=== PATIENT | female | born 1990 | race Hispanic/Latino ===

== ENCOUNTER → 2025-05-03 | Emergency (ER) | payer BC ==
[~2025-05-03] VITALS: Ht 157.5 cm; Wt 108.9 kg
[~2025-05-03] MED LIST: 0.9%NACL 1000ML 1,000 ML IV ONE; FAMO-136 PO
--- NOTE | 2025-05-03 18:36 | HMCIMG ---
US ABDOMINAL RUQ\E\LTD HISTORY: Abdominal pain COMPARISON: None TECHNIQUE: Right upper quadrant abdominal ultrasound study was performed. FINDINGS: Liver measures 16.8 cm. The visualized portion of the pancreas is within normal limits. Liver is echogenic consistent with liver parenchymal disease. No gallstone is seen. Common duct measures 4 mm. No evidence of gallbladder wall thickening is seen. Right kidney measures 11.5 x 4.9 x 4.9 cm. No hydronephrosis is seen of the right kidney. IMPRESSION: 1. No gallstones or ductal dilatation is seen. 2. No hydronephrosis is seen.
[2025-05-03 19:17] LABS: BASOPHILS # (AUTO) 0.03 K/uL (0.00-0.20); BASOPHILS % (AUTO) 0.2 % (0.0-5.0); EOSINOPHILS # (AUTO) 0.18 K/uL (0.00-0.70); EOSINOPHILS % (AUTO) 1.4 % (0.0-8.0); HEMATOCRIT 41.5 % (36-48); IMMATURE GRANULOCYTE ABSOLUTE 0.04 K/uL (0-1); LYMPHOCYTES # (AUTO) 4.2 K/uL (1.0-4.8); LYMPHOCYTES % (AUTO) 33.1 % (21.0-51.0); MEAN CORPUSCULAR HEMOGLOBIN 28.3 pg (27.0-33.0); MEAN CORPUSCULAR VOLUME 83.2 fL (79-99); MONOCYTES # (AUTO) 0.8 K/uL (0.1-1.0); MONOCYTES % (AUTO) 6.3 % (3.0-13.0); NEUTROPHILS # (AUTO) 7.4 K/uL (1.8-7.7); NEUTROPHILS % (AUTO) 58.7 % (40.0-77.0); PLATELET COUNT (AUTO) 327 K/uL (130-400); RED BLOOD CELL COUNT(AUTO) 4.99 MIL/uL (4.00-5.50); RED CELL DISTRIBUTION WIDTH 13.2 % (11.0-15.5); WHITE BLOOD COUNT (AUTO) 12.7 K/uL (4.8-10.8)
[2025-05-03 19:26] LABS: CARBON DIOXIDE 29 mmol/L (21-32); CHLORIDE 104 mmol/L (101-111); CREATININE 0.7 mg/dL (0.5-1.0); GLOMERULAR FILTR. RATE CALC 116 mL/min (>90); GLUCOSE,RANDOM 97 mg/dL (70-105); POTASSIUM 3.6 mmol/L (3.5-5.1); SODIUM SERUM 139 mmol/L (136-145); UREA NITROGEN, BLOOD 12 mg/dL (7-18)
[2025-05-03 19:37] LABS: ALANINE AMINOTRANSFERASE 32 U/L (12-78); ALBUMIN 3.5 g/dL (3.5-5.0); ASPARTATE AMINOTRANSFERASE 16 U/L (10-37); BILIRUBIN,DIRECT < 0.1 mg/dL (0.0-0.3); BILIRUBIN,TOTAL 0.1 mg/dL (0.2-1.0); HCG,QUANTITATIVE 0 mIU/mL (0-5); TOTAL PROTEIN, SERUM 7.1 g/dL (6.0-8.3)
--- NOTE | 2025-05-03 19:50 | ERN ---
ED Note History of Present Illness Stated Complaint: SEVERE ABDOMINAL PAIN Chief Complaint: Abdominal Pain Time Seen by MD: 16:58 Time Seen by Midlevel: 17:00 Dictation: 34-year-old female coming in complaining of right upper quadrant pain and diarrhea for the last week. Patient states she has a history of GERD. Patient states she ate cornea in a cup, and some chips between yesterday and today. Denies any blood in stool. Denies any fever, nausea or vomiting. Allergies: Coded Allergies: Penicillins (Unverified Allergy, Unknown, 05/03/25) Past Medical History Past Medical History: GERD, Hypertension Surgical History: Tonsillectomy LMP: April 14, 2025 Review of System Dictation Constitutional: Negative for fever,chills, and weight loss Eyes: Negative for injury, pain,redness, and discharge ENT: Negative for injury,pain or swelling Cardiovascular: Negative for chest pain, palpitations, and edema Respiratory: Negative for shortness of breath, cough, and wheezing, Abdomen/GI: Right upper quadrant pain with diarrhea, no nausea or vomiting Back: Negative for injury and pain : Negative for injury, bleeding and discharge MS/Extremity: Negative for injury and deformity Skin: Negative for rash, and discoloration Neuro: Negative for headache, weakness, numbness, tingling, and seizure Psych: Negative for suicide ideation, homicidal ideation, and hallucinations Review of Systems: was completed Initial Vital Sign VS Vital Signs Date Time Temp Pulse Resp B/P (MAP) Pulse Ox O2 Delivery O2 Flow Rate FiO2 05/03/25 17:31 99.0 77 20 120/79 Room Air Physical Exam Dictation General: awake, alert, NAD Head/Face: Normocephalic, atraumatic Eyes: PERRL, EOMI, vision at baseline ENT: oral cavity clear, TMs clear, no signs of infection Neck: Trachea midline, supple, no nuchal rigidity Cardiovascular: RRR, normal S1/S2, No MRGs, no JVD Respiratory: CTAB, no respiratory distress, No rales or wheezes Abdomen: Soft, mild tenderness to the right upper quadrant, non-distended, normal bowel sounds, no guarding or rebound. Skin: Warm, dry, normal turgor, no rash MS/Extremity: Pulses equal, no cyanosis, neurovascular intact, FROM Neuro: COAx4, GCS 15, strength 5/5, CN 2-12 intact, normal cerebellar exam, normal gait, Psych: Normal behavior, mood, and affect normal Results (Laboratory/Radiology) Laboratory/Radiology Laboratory Tests Test 05/03/25 19:03 White Blood Count 12.7 K/uL (4.8-10.8) H Red Blood Count 4.99 MIL/uL (4.00-5.50) Hemoglobin 14.1 g/dL (12.0-16.0) Hematocrit 41.5 % (36-48) Mean Corpuscular Volume 83.2 fL (79-99) Mean Corpuscular Hemoglobin 28.3 pg (27.0-33.0) Mean Corpuscular Hemoglobin Concent 34.0 g/dL (32.0-36.0) Red Cell Distribution Width 13.2 % (11.0-15.5) Platelet Count 327 K/uL (130-400) Mean Platelet Volume 9.8 fL (7.5-10.5) Immature Granulocyte % (Auto) 0.3 % (0-1) Neutrophils (%) (Auto) 58.7 % (40.0-77.0) Lymphocytes (%) (Auto) 33.1 % (21.0-51.0) Monocytes (%) (Auto) 6.3 % (3.0-13.0) Eosinophils (%) (Auto) 1.4 % (0.0-8.0) Basophils (%) (Auto) 0.2 % (0.0-5.0) Neutrophils # (Auto) 7.4 K/uL (1.8-7.7) Lymphocytes # (Auto) 4.2 K/uL (1.0-4.8) Monocytes # (Auto) 0.8 K/uL (0.1-1.0) Eosinophils # (Auto) 0.18 K/uL (0.00-0.70) Basophils # (Auto) 0.03 K/uL (0.00-0.20) Absolute Immature Granulocyte (auto 0.04 K/uL (0-1) Nucleated Red Blood Cells 0.0 % (0.0-0.19) Sodium Level 139 mmol/L (136-145) Potassium Level 3.6 mmol/L (3.5-5.1) Chloride Level 104 mmol/L (101-111) Carbon Dioxide Level 29 mmol/L (21-32) Blood Urea Nitrogen 12 mg/dL (7-18) Creatinine 0.7 mg/dL (0.5-1.0) Glomerular Filtration Rate Calc 116 mL/min (>90) Random Glucose 97 mg/dL (70-105) Total Calcium 8.7 mg/dL (8.5-10.1) Total Bilirubin 0.1 mg/dL (0.2-1.0) L Direct Bilirubin < 0.1 mg/dL (0.0-0.3) Aspartate Amino Transf (AST/SGOT) 16 U/L (10-37) Alanine Aminotransferase (ALT/SGPT) 32 U/L (12-78) Alkaline Phosphatase 69 U/L (50-136) Total Protein 7.1 g/dL (6.0-8.3) Albumin 3.5 g/dL (3.5-5.0) Lipase 31 U/L (16-77) Human Chorionic Gonadotropin, Quant 0 mIU/mL (0-5) Labs Reviewed?: Yes Ultrasound Comment: [address] [address] IMAGING REPORT Signed PATIENT: ARACELI DUMONT MR#: [id number] : 1990 SEX: F AGE: 34 LOCATION: [facility] ORDER 30 STATUS: REG REPORT#: [id number] SERVICE 29 REASON: ruq pain ORDERING PHYSICIAN: SAMIRA YA NP PROCEDURE: ABDRUQLTD - US ABDOMINAL RUQ\LTD US ABDOMINAL RUQ\E\LTD HISTORY: Abdominal pain COMPARISON: None TECHNIQUE: Right upper quadrant abdominal ultrasound study was performed. FINDINGS: Liver measures 16.8 cm. The visualized portion of the pancreas is within normal limits. Liver is echogenic consistent with liver parenchymal disease. No gallstone is seen. Common duct measures 4 mm. No evidence of gallbladder wall thickening is seen. Right kidney measures 11.5 x 4.9 x 4.9 cm. No hydronephrosis is seen of the right kidney. IMPRESSION: 1. No gallstones or ductal dilatation is seen. 2. No hydronephrosis is seen. DICTATED BY: CAROLA GOLDBERG MD DATE: 05/03/251832 ELECTRONICALLY SIGNED BY: CAROLA GOLDBERG MD DATE: 05/03/251835 ED Course ED Course Orders Procedure Category Date Status Time Cbc With Differential LAB 05/03/25 Complete 17:30 Basic Metabolic Panel LAB 05/03/25 Complete 17:30 Hepatic Function Panel LAB 05/03/25 Complete 17:30 Lipase LAB 05/03/25 Complete 17:30 Us Abdominal Ruq\Ltd US 05/03/25 Resulted 17:30 Hcg,Quantitative LAB 05/03/25 Complete 17:30 0.9%Nacl 1000ml (Ns PHA 05/03/25 Transmitted 1000ml) 20:00 Famotidine 20mg Vial PHA 05/03/25 Transmitted (Pepcid 20mg Vial) 19:42 Ketorolac PHA 05/03/25 Transmitted Tromethamine 15mg/Ml 19:42 Zofran 4mg Ivp X1 Dose PHA 05/03/25 Transmitted 20:00 Gi Cocktail(Viscous PHA 05/03/25 Transmitted Lido 2%) 20:00 Gi Cocktail (Maalox PHA 05/03/25 Transmitted 30ml) 20:00 Gi Cocktail(Bentyl PHA 05/03/25 Transmitted 10mg) 20:00 Vital Signs Date Time Temp Pulse Resp B/P (MAP) Pulse Ox O2 Delivery O2 Flow Rate FiO2 05/03/25 17:31 99.0 77 20 120/79 Room Air Medical Decision Making MDM MDM: 34-year-old female coming in complaining of right upper quadrant pain and diarrhea for the last week. Patient states she has a history of GERD. Patient states she ate cornea in a cup, and some chips between yesterday and today. Denies any blood in stool. Denies any fever, nausea or vomiting. Blood work shows mild leukocytosis of 12, no anemia, thrombocytopenia. Chemistry unremarkable, no transaminitis, no T bili, no elevated lipase. After pain medication patient states she feels better. Discussed with the patient's could be her GERD and or an ulcer and he is to follow up outpatient with her PCP and/or GI. Patient verbalized understanding, answered all questions. Differential diagnosis: Pancreatitis, cholecystitis, gastroenteritis Rationale: Tests considered and ordered secondary to shared decision making include: Previous outside records reviewed: Old ER visits. Risk of complication and/or morbidity or mortality of patient management: None Medications-Per medication reconciliation Need for hospitalization: Patient does not meet criteria for hospitalization. Need for emergency major/minor surgery: No There are no social concerns with this patient. Prescription drug management Prescriptions will include symptomatic care Patient's prior external medical records from other ER visits were reviewed by me as indicated. Prior testing and results from previous visits were reviewed. Prior tests were taken into account with medical decision making and resource utilization, independent historian/historians were used to obtain complete medical history. I independently interpreted the test that were performed, results were reviewed by me and considered findings on radiology if ordered. Medical management and examination interpretation discussions were had by me with other qualified healthcare professionals as indicated for the patient's care. DX & DISP Disposition: Discharge Departure Impression: Primary Impression: GERD (gastroesophageal reflux disease) Additional Impression: Gastroenteritis Condition: Stable Scripts Famotidine (Pepcid) 20 Mg Tablet 1 TAB PO BID for 30 Days, #60 TAB 0 Refills Prov: SAMIRA YA NP 05/03/25 Additional Instructions: Stop eating chips and junk food to prevent some of your abdominal pain. Follow up with your PCP in 1-2 days, return to the hospital if you have any worsening symptoms. Referrals: SELF,REFERRAL (PCP) Time of Disposition: 19:49 I have reviewed the case, and I agree with, Diagnosis and Plan SAMIRA YA NP May 03, 2025 19:50
[2025-05-03] MEDS: 0.9%NACL 1000ML 1,000 ML IV STA (20:20)
[2025-05-03] MEDS: LIDOCAINE HCL 2% VISCOUS 15 ML UDCUP PO ONE (20:28)
[2025-05-03] MEDS: FAMOTIDINE 20MG VIAL IV STA (20:28)
[2025-05-03] MEDS: DICYCLOMINE HCL 10 MG/5 ML ML PO ONE (20:28)
[2025-05-03] MEDS: ketOROlac 15MG/ML VIAL (15MG/ML) IV STA (20:28)
[2025-05-03] MEDS: ondanSETRON 4MG INJ IVP ONE (20:28)
[2025-05-03] MEDS: MAG/ALUM/SIMETH 30 ML UDCUP PO ONE (20:28)
[2025-05-03 20:51] VITALS: BP 136/79; PULSE 86; RESP 18; TEMP 98.2; O2SAT 98
== END ==
LOC: EDH 16:57
DX: K21.9 Gastro-esophageal reflux disease without esophagitis (principal); K52.9 Noninfective gastroenteritis and colitis, unspecified; R10.2 Pelvic and perineal pain; I10 Essential (primary) hypertension; Z88.0 Allergy status to penicillin; Z90.89 Acquired absence of other organs
CPT/HCPCS: 99284; 96374; 76705; 96375; 96361; 80076; 80048; 84702; 83690; 85025; 36415; J1885; J3490; J7030; J2405